=== PATIENT | male | born 1990 | race Caucasian/White ===

== ENCOUNTER 2019-12-31 18:17 | Emergency (ER) | payer SELFPAY ==
[~2019-12-31] VITALS: Ht 190.5 cm; Wt 83.9 kg
[2019-12-31] MEDS ORDERED: Norco 5-325 Ta1 EACH PO (19:53)
[2019-12-31] MEDS ORDERED: CEPH500 PO (19:53)
== END 2019-12-31 20:11 | disposition home or self-care (01) ==
LOC: ER 18:17
DX: S56.221A Laceration of other flexor muscle, fascia and tendon at forearm level, right arm, initial encounter (principal); W22.8XXA Striking against or struck by other objects, initial encounter
CPT/HCPCS: 12035; 73090; 99283-25; A9270-GY

== ENCOUNTER 2020-01-02 23:37 | Emergency (ER) | payer SELFPAY ==
[~2020-01-02] VITALS: Ht 190.5 cm; Wt 83.9 kg
[~2020-01-02 23:37] MED LIST: CEPH500 PO; Norco 5-325 Ta1 EACH PO
[2020-01-03] MEDS ORDERED: Bactrim Ds Tab1 EACH PO (00:09)
[2020-01-03] MEDS ORDERED: CEPH500 PO (00:09)
== END 2020-01-03 00:14 | disposition home or self-care (01) ==
LOC: ER 23:37
DX: S56.221D Laceration of other flexor muscle, fascia and tendon at forearm level, right arm, subsequent encounter (principal); L08.9 Local infection of the skin and subcutaneous tissue, unspecified; F17.210 Nicotine dependence, cigarettes, uncomplicated
CPT/HCPCS: 99282; A9270-GY

== ENCOUNTER 2020-01-07 15:26 | Emergency (ER) | payer OTHER ==
[~2020-01-07] VITALS: Ht 190.5 cm; Wt 83.9 kg
[~2020-01-07 15:26] MED LIST changes: +Bactrim Ds Tab1 EACH PO
[2020-01-07] MEDS ORDERED: Bactrim Ds Tab1 EACH PO (15:43)
[2020-01-07] MEDS ORDERED: Keflex500 MG PO (15:43)
== END 2020-01-07 16:25 | disposition home or self-care (01) ==
LOC: ER 15:26
DX: L03.113 Cellulitis of right upper limb (principal); K04.7 Periapical abscess without sinus; F17.210 Nicotine dependence, cigarettes, uncomplicated
CPT/HCPCS: 41800; 99283-25; A9270-GY

== ENCOUNTER 2020-01-27 14:17 | Inpatient (IN) | payer OTHER ==
[~2020-01-27] VITALS: Ht 190.5 cm; Wt 83.9 kg
[~2020-01-27 14:17] MED LIST changes: +Keflex500 MG PO
[2020-01-27 14:55] LABS: BASOPHILS ABSOLUTE AUTO 0.03 K/mm3 (0.00-0.23); BASOPHILS PERCENT AUTO 0 % (0-2); EOSINOPHILS ABSOLUTE AUTO 0.01 K/mm3 (0.00-0.68); EOSINOPHILS PERCENT AUTO 0 % (0-6); Hematocrit 42.9 % (37.0-53.0); Hemoglobin 14.5 g/dL (13.5-17.5); IMMATURE GRAN ABSOLUTE AUTO 0.05 K/mm3 (0.00-0.10); IMMATURE GRAN PERCENT AUTO 0 % (0-1); LYMPHOCYTES ABSOLUTE AUTO 2.79 K/mm3 (0.84-5.20); LYMPHOCYTES PERCENT AUTO 22 % (21-46); MONOCYTES ABSOLUTE AUTO 1.05 K/mm3 (0.16-1.47); MONOCYTES PERCENT AUTO 8 % (4-13); Mean Corpuscular HGB 31.7 pg (26.0-34.0); Mean Corpuscular HGB Conc 33.8 g/dL (31.5-36.5); Mean Corpuscular Volume 94 fL (80-100); NEUTROPHILS ABSOLUTE AUTO 8.85 K/mm3 (1.96-9.15); NEUTROPHILS PERCENT AUTO 69 % (41-73); Platelet Count 331 K/mm3 (150-400); RDW Coefficient Variation 13.1 % (11.7-14.2); RDW Standard Deviation 44.8 fL (35.1-46.3); Red Blood Cell Count 4.57 M/mm3 (4.30-5.90); White Blood Cell Count 12.78 K/mm3 (4.00-11.30)
[2020-01-27 15:06] LABS: Acetaminophen, Random <2.0 ug/mL (10.0-30.0); Alanine Aminotransfer (ALT/SGP 83 U/L (12-78); Albumin, Blood 3.4 g/dL (3.4-5.0); Albumin/Globulin Ratio 1.1 (0.8-1.8); Alk Phos 96 U/L (50-136); Anion Gap 12 mmol/L (6-16); Aspartate Aminotrans (AST/SGOT 97 U/L (12-37); Bilirubin, Total 0.3 mg/dL (0.1-1.0); Blood Urea Nitrogen 14 mg/dL (8-24); Bun/Creatinine Ratio 12.7 (12.0-20.0); CO2, Blood 21 mmol/L (21-32); Calcium, Blood 8.8 mg/dL (8.5-10.1); Chloride, Blood 108 mmol/L (98-108); Ethanol (Alcohol), Blood, Med <3 mg/dL; Globulin, Blood 3.1 g/dL (2.2-4.0); Glomerular Filtration Rate >60 (60-); Glucose, Blood 84 mg/dL (70-99); Potassium, Blood 3.7 mmol/L (3.5-5.5); Salicylate 4.2 mg/dL (2.8-20.0); Sodium, Blood 141 mmol/L (136-145); Total Protein, Blood 6.5 g/dL (6.4-8.2)
[2020-01-27 15:34] LABS: International Normalized Ratio 0.99; Prothrombin Time Results 10.6 Sec (9.7-11.5)
--- NOTE | 2020-01-27 17:20 | NUR ---
01/27/20 1720 Andrés Fontaine NO SEDATION OR ANESTHESIA GIVEN FOR PATIENT, DONE UNDER LOCAL PER ANTIBIOTICS GIVEN IN ER
--- NOTE | 2020-01-27 20:00 | NUR ---
RECEIVED HAND OFF FROM DUNG STOKES IN PACU USING SBAR. TRANSPORTED TO ROOM 211 VIA STRETCHER. TRANSFERED SELF TO BED WITH STANDBY ASSISTANCE, TOLERATED WELL. SITTING ON THE SIDE OF THE BED WITH EYES OPEN, NAD NOTED, VSS. ORIENTED TO ROOM, CALL SYSTEM, AND POC, VOICES UNDERSTANDING. PT STATED THAT HE NEEDED TO USE THE BATHROOM AND TOOK HIS IVF BAG WITH HIM, FOLLOWED BY RUNNING WATER BEING HEARD BY NURSING. WHEN ASKED IF HE WAS OK, PT STATED THAT HE WAS JUST WASHING OFF. NEW GOWN PROVIDED, AND PT SAT ON EDGE OF BED. HE ASKED FOR FOOD AND DRINK. CONTACED AND NEW ORDERS RECIEVED FOR DIET AND MEDICATIONS. DENIES FURTHER NEEDS OR WANTS AT THIS TIME. SAFETY MEASURES IN PLACE. ADMISSION ASSESSMENT IN PROGRESS. WILL CONTINUE TO MONITOR.
--- NOTE | 2020-01-27 20:15 | NUR ---
NURSING WENT TO ROOM TO GIVE PT FULL LIQUID DIET AND WATER TO DRINK, PT NOT IN ROOM. CALL RECEIVED FROM SECURITY, PT FOUND OUTSIDE IN EMPLOYEE BREAK AREA. THEY ASKED IF PT WAS ON A HOLD, NURSING INFORMED THEM THAT HE WAS NOT. PT TO BE ESCORTED BACK TO ROOM. WILL CONTINNUE TO MONITOR.
--- NOTE | 2020-01-27 20:30 | NUR ---
PT RETURNED TO ROOM WITH SECURITY AFTER BEING FOUND OUTSIDE IN THE EMPLOYEE BREAK AREA. STATED THAT HE DIDN'T REALIZE THAT HE WAS NOT ALLOWED TO LEAVE. THE ASKED IF HE WOULD LIKE A NICOTINE PATCH HE STATED THAT HE WOULD. ATE ALL JELLO AND APPLESAUCE OFFERED. WAS DRINKING WATER WITHOUT STRAW. MEDICATED FOR MOUTH AND FACE PAIN AT 7/10. DENIES FURTHER NEEDS OR WANTS AT THIS TIME. SAFETY MEASURES IN PLACE. WILL CONTINUE TO MONITOR.
--- NOTE | 2020-01-28 00:30 | NUR ---
TAKEN TO ER BY CHILDREN'S SERVICE SUPERVISOR AND CHARGE NURSE WITH [facility] SECURITY TEAM AND [employer] WHILE IN RESTRAINTS ON RELLSWORTH AFTER CRASHING THROUGH ANTIROOM WINDOW AND CRASHING INTO LARGE WINDOW IN ROOM ATTEMPTING TO BREAK IT.
--- NOTE | 2020-01-28 00:58 | NUR ---
01/27/20 901 PARTS COORDINATOR NOTIFIED THIS RN OF HEARING A "CRASHING" SOUND COMING FROM PT'S ROOM. PT FOUND TO BE PACING AROUND ROOM, BROKEN GLASS AND BLOOD SCATTERED AROUND ROOM. PT ASKED WHAT HAPPENED, PT STATED "I FELL THROUGH THE WINDOW" PT ASKED AGAIN WHAT HAPPENED, PT STATED "I FELL THROUGH THE WINDOW WITH MY HEAD" WINDOW TO ANTI ROOM NOTED TO BE BROKEN AND SHATTERED. SECURITY AND NURSING WILTON WEAVER CALLED. PT CONT TO PACE AROUND ROOM, PT ASSISTED TO SIT ON SIDE OF BED. DR LOCK NOTIFIED AT 2293, NURSING WILTON WEAVER SPOKE W/DR LOCK, PT TO BE D/C AMA. [place] [employer] CALLED. IV'S X2 D/C WNL. PT WOUNDS CLEANSED W/NS, NEW DRESSINGS APPLIED NO GLASS FRAGMENTS NOTED IN WOUNDS. PT APPEARED TO BECOME INCREASINGLY MORE AGITATED; SECURITY REMAINS IN ROOM. [employer] CALLED. PT BEGAN TO PACE IN ROOM, BREATHING BECAME MORE RAPID. PT ENC TO REMAIN CALM. PT STOOD UP AND LUNGED SELF INTO LARGE ROOM WINDOW, PT HIT WINDOW HEAD FIRST, FELL BACK ONTO FLOOR. SECURITY ATTEMPTED TO REDIRECT PT AND ASSIST PT UP. PT UNCOOPERATIVE, LUNGED SELF AT WINDOW AGAIN. PT AGAIN HIT WINDOW HEAD FIRST HEAD AND FELL ONTO FLOOR. SECURITY RESTRAINING PT. [employer] OFFICERS IN ROOM. PT UNCOOPERATIVE, SPITTING AT SECURITY AND POLICE. SPIT MASK PLACED, PT HANDCUFFED BY POLICE. PT ASSISTED ONTO [facility], TWICE TOUGH RESTRAINTS PLACED X4. NURSING WILTON WEAVER NOTIFIED ER; PT TAKEN TO ER W/THIS RN, NURSING WILTON WEAVER, SECURITY AND [employer] OFFICERS. REPORT GIVEN TO MATT ROLLINS RN. DR FONSECA IN TO SEE PT.
[2020-01-28 01:50] LABS: Source, Urine Catheter
[2020-01-28 01:52] LABS: Appearance, Urine Clear (Clear); Bilirubin, Urine Neg (Neg); Blood, Urine 1+ (Neg); Color, Urine Amber (P-Yellow); Glucose Qualitative, Urine Neg (Neg); Ketones, Urine 3+ (Neg); Leukocyte Esterase, Urine 1+ (Neg); Nitrite, Urine Neg (Neg); Protein, Urine 2+ (Neg); Urobilinogen, Urine 1+ (Normal)
[2020-01-28 01:55] LABS: PCO2 Arterial 48.1 mmHg (35-45); PO2 Arterial 86.5 mmHg (80-100); pH Blood Arterial 7.33 (7.35-7.45)
[2020-01-28 02:04] LABS: U Amphetamine Screen DETECTED; U Benzodiazapine Screen DETECTED; U Cannabinoids Screen DETECTED; U Methamphetamine Screen DETECTED; U Oxycodone Screen DETECTED
[2020-01-28 02:05] LABS: Red Blood Cells, Urine 0-2 /hpf (0-2); Squamous Epithelial Cells Not Seen /hpf (Few); U Barbituate Screen Not Detected; U Buprenorphine Screen Not Detected; U Cocaine Screen Not Detected; U Methadone Screen Not Detected; U Opiates Screen Not Detected; U Phencyclidine Screen Not Detected; U Propoxyphene Screen Not Detected
[2020-01-28 02:06] LABS: Bacteria Many /hpf; Hyaline Casts 0-2 /lpf (0-2); Mucus Mod (0-Heavy)
[2020-01-28 03:49] LABS: Alanine Aminotransfer (ALT/SGP 69 U/L (12-78); Albumin, Blood 2.9 g/dL (3.4-5.0); Albumin/Globulin Ratio 1.1 (0.8-1.8); Alk Phos 81 U/L (50-136); Anion Gap 7 mmol/L (6-16); Aspartate Aminotrans (AST/SGOT 92 U/L (12-37); Bilirubin, Total 0.6 mg/dL (0.1-1.0); Blood Urea Nitrogen 19 mg/dL (8-24); CO2, Blood 26 mmol/L (21-32); Calcium, Blood 8.2 mg/dL (8.5-10.1); Chloride, Blood 107 mmol/L (98-108); Ethanol (Alcohol), Blood, Med <3 mg/dL; Globulin, Blood 2.6 g/dL (2.2-4.0); Glomerular Filtration Rate >60 (60-); Glucose, Blood 86 mg/dL (70-99); Potassium, Blood 3.3 mmol/L (3.5-5.5); Salicylate 2.5 mg/dL (2.8-20.0); Sodium, Blood 140 mmol/L (136-145); Total Protein, Blood 5.5 g/dL (6.4-8.2)
[2020-01-28 03:57] LABS: BASOPHILS ABSOLUTE AUTO 0.03 K/mm3 (0.00-0.23); BASOPHILS PERCENT AUTO 0 % (0-2); EOSINOPHILS ABSOLUTE AUTO 0.02 K/mm3 (0.00-0.68); EOSINOPHILS PERCENT AUTO 0 % (0-6); Hematocrit 35.3 % (37.0-53.0); Hemoglobin 11.6 g/dL (13.5-17.5); IMMATURE GRAN ABSOLUTE AUTO 0.03 K/mm3 (0.00-0.10); IMMATURE GRAN PERCENT AUTO 0 % (0-1); LYMPHOCYTES ABSOLUTE AUTO 2.68 K/mm3 (0.84-5.20); LYMPHOCYTES PERCENT AUTO 23 % (21-46); MONOCYTES ABSOLUTE AUTO 1.12 K/mm3 (0.16-1.47); MONOCYTES PERCENT AUTO 9 % (4-13); Mean Corpuscular HGB 31.5 pg (26.0-34.0); Mean Corpuscular HGB Conc 32.9 g/dL (31.5-36.5); Mean Corpuscular Volume 96 fL (80-100); Mean Platelet Volume 9.9 fL (9.1-12.4); NEUTROPHILS PERCENT AUTO 67 % (41-73); Platelet Count 237 K/mm3 (150-400); RDW Coefficient Variation 13.2 % (11.7-14.2); Red Blood Cell Count 3.68 M/mm3 (4.30-5.90); White Blood Cell Count 11.88 K/mm3 (4.00-11.30)
[2020-01-28 03:59] LABS: CPK Creatine Kinase 2291 U/L (39-308)
[2020-01-28 04:15] LABS: Creatine Kinase MB 26.7 ng/mL (0.0-3.6); Creatine Kinase MB Index 1.2 (0.0-4.0)
--- NOTE | 2020-01-28 06:37 | NUR ---
PT TO ICU FROM ER AT 0415. PT INTUBATED, & SOFT WRIST RESTRAINTS IN PLACE, PROPOFOL INFUSING. PT HAS MULTIPLE AREAS OF BRUISING ON ALL EXTREM. ALSO, MULTIPLE AREAS TO HANDS & ARMS W SUTURES, AND PARI TO TOP OF HEAD. FINE SUTURES TO LOWER LIP, MANDIBLE. MODERATE AMT OF BLOOD OOZING, SKIN WASHED & BACITRACIN OINT APPLIED. NIMBEX GTT AT 1MCG/KG/HR, PROPOFOL INFUSING AT 55MCG/KG/MIN, BIS MONITOR READING 50'5-60'S. VALLADARES DRNG CL YELLOW URINE.
--- NOTE | 2020-01-28 09:00 | NUR ---
[place] of Care: Care assumed at 0700hr. Patient intubated, sedated and on Nimbex gtt. Vent to AC- 14/500/25/5, spO2-100%, VSS, tolerating vent without difficulty. Nimbex gtt at 1mcg/kg/min, and propofol gtt at 55mcg/kg/min, BIS monitor reading in the 50's-60, T/F-4/4, and patient slightly moves head [id number] with oral care. OG tube placed to [id number] at shift change, approx 500ml of green/yellow bile output with small chunks of food thus far. Peripheral IV's x2 to lt arm patent and intact, infusing without difficulty. Bilateral soft wrist restraints in place to protect lines, tubes, cords. Patient has several lacerations (sutured) to face and rt arm, also stapled laceration to top of head. Plan to cleanse all wounds at apply steri-strips to x2 lacerations that have become slightly displaced. All wounds photographed and pictures placed in chart. Spoke with Dr. Lovelace at this time. Discussed patient's plan of care. received orders to D/C Nimbex gtt, and start fentanyl GRAVES REGISTRATION SPECIALIST with prn Ativan for sedation. Dr. Lovelace informed she will also order Abx, and K+ replacement. Will continue to monitor.
--- NOTE | 2020-01-28 11:52 | NUR ---
Update- Medications- Wound Care: Nimbex gtt D/C'd and Fentanyl gtt started at 100mcg/hr, at approx 1030hr per Dr. Lovelace. All wounds/lacerations cleansed with "wound cleanser" and bacitracin ointment applied. Steri-strips applied to mandible lacerations and to laceration on rt hand. Wound care per Dr. Bahena. Will continue to monitor.
[2020-01-28 17:18] LABS: Anion Gap 8 mmol/L (6-16); Blood Urea Nitrogen 13 mg/dL (8-24); CO2, Blood 24 mmol/L (21-32); CPK Creatine Kinase 1254 U/L (39-308); Chloride, Blood 109 mmol/L (98-108); Creatinine, Blood 0.87 mg/dL (0.60-1.20); Glomerular Filtration Rate >60 (60-); Glucose, Blood 60 mg/dL (70-99); Potassium, Blood 3.5 mmol/L (3.5-5.5); Sodium, Blood 141 mmol/L (136-145)
--- NOTE | 2020-01-28 18:32 | NUR ---
Shift Summary: Patient remains intubated and sedated throughout shift, tolerating vent without difficulty. Nimbex gtt D/C'd this morning and fentanyl gtt started. Patient now rouses to verbal stimuli and followed commands to open eyes, squeeze hands. Patient also becomes restless and difficulty to re-direct at times. Received instructions per Dr. Lovelace to keep patient sedated, and calm. Prn Ativan given x3. Fentanyl gtt titrated up to 200mcg/hr, but then back down to 100mcg/hr and systolic BP decreased to 80's. Propofol gtt decreased to 45mcg/kg/min. BP now improved to systolic- low 100's, MAP's 70's-80's. Prn Ativan effective to calm patient. No changes to wounds/lacerations since this morning, remains C/D/I and approximated. Borjas cath remains patent and intact, draining clear yellow urine. 1600hr BMP showed glucose-60, call placed to Dr. Lovelace. Received orders to start TF, Jevity 1.2 at 25ml/hr, 1amp D50% IV, and to check glucose q4hr. Soft wrist restraints remain in place. Appears calm and cooperative at this time. Will continue to monitor until report to NOC shift RN.
--- NOTE | 2020-01-28 19:33 | NUR ---
ASSUMED PT CARE FROM DUNG MAYO AT 1900 PT SEDATED AND INTUBATED. PROPOFOL AT 45MCG/KG/MIN, FENTANYL AT 100MCG/HR; 4MLS/HR. VENT SETTINGS: AC 16, TV 500, PEEP 5, FIO2 25%. PER REPORT PT IS TO BE SEDATED T/O NIGHT; NO SEDATION VACATION OR VENTILATOR WEAN IN THE AM PER DR. GRIJALVA. PT WILL BE ASSESSED IN THE AM REGARDING EXTUBATION. NS INFUSING AT 125MLS/HR. VSS; SEE FLOWSHEET. PT HAS MULTIPLE LACERATIONS WITH SUTURES TO RIGHT ARM, MULTIPLE OPEN ABRASIONS TO BILATERAL HANDS, LACERATION TO SCALP WITH THREE PARI INTACT, SCATTERED BRUISING AND SCARS TO BLE'S; SEE PHOTOS IN CHART. BEDSIDE REPORT GIVEN.
--- NOTE | 2020-01-29 00:11 | NUR ---
REASSESSMENT NOTICED RHYTHM CHANGE EARLIER IN SHIFT FROM NSR TO JUNCTIONAL RHYTHM WITH INVERTED P WAVES AND ELEVATED ST SEGMENT. FOUND EKG FROM ED VISIT ON 01/28/[address] SEGMENT ELEVATION AND NO ECTOPIC ATRIAL RHYTHM. EKG OBTAINED SHOWING ECTOPIC ATRIAL RHYTHM; HR 75; BP STABLE. AFTER OBTAINING EKG AND REPOSITIONING PT; RHYTHM NOTED TO CHANGE AGAIN INTO A WANDERING ATRIAL PACEMAKER. PT CONTINUED TO CHANGE BACK AND FORTH TO UPRIGHT P WAVES, TO INVERTED P WAVES, AND THEN INTO BAKARI RHYTHMS. WILL CONTINUE TO MONITOR. SEE CHART FOR PRINT OUT RHYTHM STRIPS. DURING REPOSITIONING PT ALSO OPENED EYES, WAS ABLE TO NOD HEAD YES/NO TO QUESTIONS, AND FOLLOW SIMPLE COMMANDS. PROPOFOL AT 40 MCG/KG/MIN AND FENTANYL AT 100MCG/HR; 4MLS/HR.
[2020-01-29 03:27] LABS: BASOPHILS ABSOLUTE AUTO 0.02 K/mm3 (0.00-0.23); BASOPHILS PERCENT AUTO 0 % (0-2); EOSINOPHILS ABSOLUTE AUTO 0.06 K/mm3 (0.00-0.68); EOSINOPHILS PERCENT AUTO 1 % (0-6); Hematocrit 31.2 % (37.0-53.0); Hemoglobin 10.4 g/dL (13.5-17.5); IMMATURE GRAN ABSOLUTE AUTO 0.01 K/mm3 (0.00-0.10); IMMATURE GRAN PERCENT AUTO 0 % (0-1); LYMPHOCYTES ABSOLUTE AUTO 2.78 K/mm3 (0.84-5.20); LYMPHOCYTES PERCENT AUTO 39 % (21-46); MONOCYTES ABSOLUTE AUTO 0.65 K/mm3 (0.16-1.47); MONOCYTES PERCENT AUTO 9 % (4-13); Mean Corpuscular HGB 32.1 pg (26.0-34.0); Mean Corpuscular HGB Conc 33.3 g/dL (31.5-36.5); Mean Corpuscular Volume 96 fL (80-100); NEUTROPHILS ABSOLUTE AUTO 3.62 K/mm3 (1.96-9.15); NEUTROPHILS PERCENT AUTO 51 % (41-73); Platelet Count 201 K/mm3 (150-400); RDW Coefficient Variation 13.4 % (11.7-14.2); RDW Standard Deviation 47.8 fL (35.1-46.3); Red Blood Cell Count 3.24 M/mm3 (4.30-5.90); White Blood Cell Count 7.14 K/mm3 (4.00-11.30)
[2020-01-29 03:49] LABS: Alanine Aminotransfer (ALT/SGP 55 U/L (12-78); Albumin, Blood 2.3 g/dL (3.4-5.0); Albumin/Globulin Ratio 1.2 (0.8-1.8); Alk Phos 64 U/L (50-136); Anion Gap 5 mmol/L (6-16); Aspartate Aminotrans (AST/SGOT 66 U/L (12-37); Bilirubin, Total 0.3 mg/dL (0.1-1.0); Blood Urea Nitrogen 12 mg/dL (8-24); Bun/Creatinine Ratio 13.3 (12.0-20.0); CO2, Blood 26 mmol/L (21-32); Calcium, Blood 7.7 mg/dL (8.5-10.1); Chloride, Blood 112 mmol/L (98-108); Creatinine, Blood 0.91 mg/dL (0.60-1.20); Glomerular Filtration Rate >60 (60-); Glucose, Blood 77 mg/dL (70-99); Potassium, Blood 3.3 mmol/L (3.5-5.5); Sodium, Blood 143 mmol/L (136-145); Total Protein, Blood 4.3 g/dL (6.4-8.2)
--- NOTE | 2020-01-29 07:28 | NUR ---
[place] of Care; Care assumed at 0700hr. Patient remains intubated and sedated. Vent to AC-16/500/5/25%, spO2-98-100%, VSS, tolerating vent without difficulty. Propofol gtt at 40mcg/kg/min, fentanyl gtt at 100mcg/hr. Patient opens eyes to verbal stimuli and follows simple commands to move extremities and squeeze hands. Became slightly restless after woken but able to verbally re-direct and calm patient. Peripheral IV's x2 remain patent and intact, infusing without difficulty. Borjas cath patent and intact, draining clear yellow urine. KCL IV ordered by this RN this morning per ICU electrolyte protocol. TF (Jevity 1.2) at goal of 25ml/hr, with 30ml H2O flush q4hr. Bilateral soft wrist restraints in place to protect lines, tubes, cords. Will discuss possible extubation with Dr. Lovelace this morning. Will continue to monitor.
--- NOTE | 2020-01-29 07:53 | NUR ---
END OF SHIFT SUMMARY PT REMAINS INTUBATED/SEDATED. PROPOFOL AT 40MCG/KG/MIN. FENTANYL AT 100MCG/HR; 4MLS/HR. PT ABLE TO OPEN EYES TO VERBAL STIMULI, NOD HEAD YES/NO TO QUESTIONS, FOLLOWS SIMPLE COMMANDS. NODS HEAD "NO" TO PAIN. ATIVAN 2MG ADMINISTERED APPROXIMATELY EVERY 4 HOURS WITH REPOSITIONING D/T NOT TOLERATING VENT OR MOVEMENT. VENT SETTINGS REMAIN UNCHANGED. LUNG SOUNDS CLEAR T/O ALL LOBES; NO SECRETIONS SUCTIONED. SEE CHART AND EARLIER NOTE REGARDING RHYTHM CHANGES. CURRENTLY PT IS NSR WITH HR 70'S. BP'S STABLE; SEE FLOWSHEET. JEVITY 1.2 AT GOAL OF 25CC/HR; MINIMAL RESIDUALS THIS SHIFT WITH HIGHEST BEING 110CC, REINSTILLED. TEMP VALLADARES CATHETER IS PATENT AND DRAINING DARK, GREEN/YELLOW URINE TO GRAVITY; 350CC OUTPUT THIS SHIFT. NS REMAINS INFUSING AT 125MLS/HR. BILATERAL SOFT WRIST RESTRAINTS REMAIN IN PLACE. BEDSIDE REPORT GIVEN TO DUNG MAYO.
--- NOTE | 2020-01-29 12:30 | NUR ---
Extubation: Fentanyl gtt stopped at approx 1030hr, and propofol gtt decreased to 20mcg/mg/min. Then received instructions per Dr. Lovelace to place patient on precedex gtt to facilitate extubation. Precedex gtt started at 1125hr, then propofol gtt stopped at 1145hr. Patient able to stay awake and follow simple commands. Patient then extubated at 1210hr by RT Sheth and this RN. Extubated without difficulty, strong effective cough with extubation. Patient placed on 2L/NC, spO2-95-96%, no s/s of dyspnea or SOB. Patient mostly sleeping, but remains calm and cooperative with staff. Will continue to monitor.
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
--- NOTE | 2020-01-29 21:00 | NUR ---
ASSUMPTION OF CARE ASSUMED CARE OF PT @ 1900, PT RESTING IN BED, AROUSES TO VERBAL STIMULI, ORIENTED TO SELF, DATE, EVENT AND FOLLOWING DIRECTIONS. PT CALM AND COOPERATIVE, VERY WEAK VOICE. PT DENIES PN OR SOB. O2 SATURATIONS> 90% ON 2L PER NC, MONITOR SHOWS SINUS RHYTHM, HR 80-90'S, BP STABLE. SWELLING TO RT HAND AND FACE PRESENT, LACERATIONS AND SUTURES TO THESE AREAS. PT TOLERATES WOUND CARE TO LACERATIONS, LUMP PRESENT TO UPPER RIGHT ARM, PROXIMAL TO LACERATION. CBG 76, WILL CONTINUE TO MONITOR. CALL LIGHT WITHIN REACH, PT DENIES ANY NEEDS.
--- NOTE | 2020-01-30 07:20 | NUR ---
SHIFT SUMMARY NO ACUTE CHANGES THIS SHIFT, PT SLEPT THROUGH NIGHT, AROUSES TO VERBAL STIMULI REMAINS ORIENTED AND FOLLOWING DIRECTIONS. O2 SATURATIONS>90% ON 2L PER NC, MONITOR SHOWS SINUS RHYTHM VSS. WOUND CARE PROVIDED AT BEGINNING OF SHIFT, PT TOLERATED WELL. PT TOLERATED SMALL SIPS OF WATER WITH PO MEDICATION, REQUESTED FOOD THIS AM, INFORMED PT ADVANCING DIET WOULD BE DISCUSSED WITH PROVIDER, PT VERBALIZES UNDERSTANDING. VALLADARES REMAINS IN PLACE, DRAINING CLEAR YELLOW URINE. PT WEAK T/O, ABLE TO REPOSITION SELF IN BED FOR COMFORT. REPORT GIVEN TO ERIKA RAZO.
--- NOTE | 2020-01-30 10:02 | NUR ---
CARE ASSUMED REPORT RECEIVED, CARE ASSUMED AT 0700 FROM DUNG MALDONADO. PT ASLEEP ON ROUNDS. VITALS STABLE. DURING ASSESSMENT, PT AGITATED, SWEARING AT STAFF, RESTLESS IN BED. PT REPORTS HAVING PAIN "EVERYWHERE." MEDICATED PER EMAR. DR. JOLLY TO BEDSIDE FOR ASSESSMENT. PLAN TO D/C VALLADARES, GET PT UP AND MOVING, ADVANCE DIET AND POSSIBLE DISCHARGE TODAY. MANAGER CLINICAL RESEARCH CONSULT PLACED PT IS HOMELESS. SPOKE WITH KELLI IN D/C PLANNING WHO SAYS SHE WILL SEE HIM TODAY TO GIVE HIM SOME RESOURCES. AFTER MEDICATIONS AND EDUCATING PATIENT ON PLAN OF CARE, PT CALM AND COOPERATIVE. TRAY ORDERED FROM FOOD SERVICES FOR PATIENT. DECLINES FURTHER NEEDS AT THIS TIME, AGREEABLE TO USE CALL LIGHT NEEDS ARISE.
--- NOTE | 2020-01-30 10:29 | NUR ---
KADENTE SINCE PREVIOUS NOTE, PT ESCALATING FURTHER. REPORTS, "I AM TIRED OF BEING TOLD TO CUT MY HEAD OFF." ASKED PATIENT IF HE IS HEARING VOICES AND PT SAYS, "YES." AND BEGINS SWEARING AT STAFF, UNABLE TO REASON WITH PATIENT. SAYS, "HOW MANY TIMES DO I HAVE TO TRY TO CUT MY HEAD OFF WITH A WINDOW? I HAVE TRIED FIVE TIMES ALREADY." UPDATED DR. JOLLY. Richard JOLLY TO BEDSIDE FOR ASSESSMENT. NEW ORDER FOR PSYCH CONSULT. SPOKE WITH DR. HOUGH. NEW ORDER FOR HIGH RISK SUICIDE PRECAUTIONS. CONTINUOUS 1:1 OBSERVATION. PER NEREIDA, NURSING DISTRICT COURT JUSTICE, 1:[address] TO BE WITH PATIENT.
[2020-01-30 11:17] LABS: Hematocrit 31.8 % (37.0-53.0); Hemoglobin 10.8 g/dL (13.5-17.5); Mean Corpuscular HGB 31.7 pg (26.0-34.0); Mean Platelet Volume 9.9 fL (9.1-12.4); Platelet Count 209 K/mm3 (150-400); RDW Coefficient Variation 12.1 % (11.7-14.2); RDW Standard Deviation 41.8 fL (35.1-46.3); Red Blood Cell Count 3.41 M/mm3 (4.30-5.90)
[2020-01-30 11:22] LABS: Mean Corpuscular Volume 93 fL (80-100)
--- NOTE | 2020-01-30 13:26 | NUR ---
UPDATE SINCE PREVIOUS NOTE, PT HAS HAD 1:1 DIRECT OBSERVATION AT ALL TIMES. PT EMOTIONALLY LABILE. GOES FROM BEING AGITATED AND NOT REASONABLE, TO CALM, COOPERATIVE AND MAKING JOKES. FOR THE MOST PART PATIENT HAS BEEN CALM AND COOPERATIVE. PT SLEPT FOR ANOTHER HOUR OR SO, AND SINCE THEN HAS BEEN UP, EATEN LUNCH AND PARTICIPATED IN ADL'S. STEADY ON FEET. PT ABLE TO DO ALL ADL'S WITH SET UP ASSIST AND VERBAL CUES ONLY. VALLADARES REMOVED, PT HAS SUCCESSFULLY URINATED SINCE THEN. PT STILL AWAITING PSYCHIATRIC CONSULT. SPENT TIME HAVING CONVERSATION WITH PATIENT REGARDING HIS MENTAL HEALTH, DRUGS, AND BOTH MENTAL AND PHYSICAL CONSEQUENCES OF DOING THESE DRUGS AND PT SAYS, "I RESPECT WHAT YOU ARE SAYING, BUT THEY MAKE ME FEEL BETTER." AND LAUGHS.
--- NOTE | 2020-01-30 15:15 | NUR ---
UPDATE SINCE PREVIOUS NOTE, DR. HOUGH HAS SEEN PATIENT AND RECOMMENDS HOSPITAL HOLD AND PLACEMENT FOR PSYCHIATRIC HOSPITALIZATION. PT UPDATED AND AGREEABLE. READ CIVIL RIGHTS. PT GIVEN COPY AND SECOND COPY PLACED ON CHART. PT MEDICATED WITH SEROQUEL PER DR. HOUGH ORDERS AND HAS BEEN SLEEPY SOUNDLY SINCE THEN. 1:1 SITTER CONTINUES AT BEDSIDE.
--- NOTE | 2020-01-30 15:19 | NUR ---
PROVIDER COMMUNICATION UPDATED DR. JOHNS REQUESTED BY PHYSICIAN ON PATIENT'S RESPONSE TO SEROQUEL. NEW ORDER FOR SEROQUEL EVERY DAY AT BEDTIME. ORDER PLACED.
--- NOTE | 2020-01-30 17:09 | NUR ---
UPDATE SINCE PREVIOUS NOTE, PT HAS BEEN SLEEPING, BUT REPOSITIONING SELF FREQUENTLY IN BED. VITALS STABLE. NOTIFIED THAT PT TO TRANSFER TO ROOM 353. PT UPDATED AND AGREEABLE. REPORT GIVEN TO DUNG VIDAL ON MEDICAL FLOOR TO ASSUME CARE.
--- NOTE | 2020-01-30 17:46 | NUR ---
PT STATES STIL HEAR VOICES TO KILL SELF
--- NOTE | 2020-01-30 17:48 | NUR ---
PT ADMITTED TO ROOM. SI STMT SAYS STILL HEARS VOICES TELLING SELF TO KILL SELF, STATES NOT PLANNING TO PROCEED AT THIS TIME.
--- NOTE | 2020-01-30 18:02 | NUR ---
PT TRANSFERRED TO ROOM. ATE DINNER. SITTER IN ROOM. IS ON VISUAL MONITOR ALSO. VERIFIED THRU DEVON IN MONITOR ROOM. PT RESTING IN BED. NO OTHER CONCERNS AT THIS TIME. BED IN LOW POSITION. SITTER IN ROOM, SITTER HAS VOCERA. CALL LITE IN WALL.
--- NOTE | 2020-01-30 18:56 | NUR ---
TRANSFER PT TO ROOM 353 VIA WHEELCHAIR. DUNG VIDAL AT BEDSIDE AT TIME OF TRANSFER.
--- NOTE | 2020-01-31 01:14 | NUR ---
01/30/201909 PT RESTING IN BED WITH SITTER AT SIDE; PT IS ON CAMERA.
--- NOTE | 2020-01-31 03:58 | NUR ---
SHIFT SUMMARY: 30 Y/O MALE RESTED COMFORTABLY ALL SHIFT; PT DENIES SUICIDAL THOUGHTS OR VOICES DURING THIS SHIFT; PT WAS POLITE AND ABLE TO FOLLOW ALL SIMPLE VERBAL REQUESTS; C/O GENERALIZED PAIN RATED 8/10 WITH ROXICODONE 10MG PO GIVEN TWICE WITH RELIEF FELT; HAPPY AND COOPERATIVE; PT TOOK SHOWER WITH THIS NURSE PRESENT; PTS WOUNDS ARE ALL WELL APPROXIMATED WITH EDEMA TO BILATERAL HANDS NOTED (ABLE TO DORSIFLEX ALL DIGITS); PT STATED, "ZULLY BEEN DOING METH FOR 15 YEARS"; PTS THOUGHT PROCESS SLIGHTLY DISORGANIZED AT TIMES; PT HAD SITTER IN ROOM AT ALL TIMES WITH BATHROOM DOOR KEPT LOCKED (ONLY OPENED BY THIS NURSE TO VOID AND SHOWER WITH THIS NURSE PRESENT AT ALL TIMES); BED LOW POSITION WITH CALL LIGHT AT SIDE.
--- NOTE | 2020-01-31 19:00 | NUR ---
SUMM- PT SLEPT MOST OF THE DAY. MEDICATED FOR PAIN STATED 3/10 FOR ARMS, AND SEROQUIL AT 0800. AT 1045 PT BECAME EXTREMELY AGGITATED STATING " I WANT TO GET THE F OUT OF HERE- I WANT TO SMOKE POT AND A CIGARETTE"- CALLED AND DR ESTRADA, ORDER FOR B-52 ADMINISTERED IV. PT AGREED TO INJECTION AND WAS IMMEDIATELY APPOLOGETIC AND STATES HE JUST GETS ANXIOUS. AGREED TO STAY AND TO BE COOPERATIVE. PT ATE BREAKFAST AT THIS TIME AND WENT BACK TO SLEEP. RESP EVEN UNLABOERD. 1:1 SITTER, 07/05. PT AWOKE AT 1445 EXTREMELY AGGRESSIVE AND PULLED CLOSED DOOR LOCK OFF, LOOKING FOR PERSONAL BELONGINGS AND AGAIN WANTED TO HAVE A CIGARETTE AND SMOKE POT. INFORMED PT AGAIN OF 2MD HOLD AND CALLED . THIS TIME RN ADMINISTERED 2MG IM ATIVAN, WITH PT'S CONSENT AND PT ALSO TOOK OXYCODONE AND SEROQUIL PO, AND AGREED TO BE COOPERATIVE WITH 2MD HOLD. PT AGAIN ATE AND DRAND AND TOILETED AND BACK TO SLEEP. PT SLEPT THROUGH DINNER, AWOKEN FOR DINNER, BUT STATES HE WILL WAIT TO EAT, HAS NO REQ AT 1830. REPORT TO KEVIN PARKS RN.
--- NOTE | 2020-01-31 20:44 | NUR ---
1914 PT RESTING COMFORTABLY IN BED WITH SITTER--CRISPIN AT SIDE.
--- NOTE | 2020-02-01 04:46 | NUR ---
SHIFT SUMMARY: 30 Y/O MALE RESTED COMFORTABLY ALL SHIFT; PT POLITE AND ABLE TO FOLLOW ALL SIMPLE VERBAL COMMANDS; PT VOICED HE STILL HEARING VOICES AT TIMES TO KILL SELF BUT DOES NOT HAVE ANY URGES DURING THIS SHIFT; PT C/O GENERALIZED PAIN RATED 8/10 WITH ROXICODONE 10MG PO X 2 GIVEN THIS SHIFT WITH RELIEF FELT; PT HAD NO AGITATION OR OUTBURSTS THIS SHIFT (SEROQUEL 50MG PO GIVEN X 1 PRN FOR ANXIETY WITH RELIEF FELT); SEE PREVIOUS NURSING NOTES REGARDING EDUCATION PROVIDED BY THIS NURSE TO PATIENT; PT HAD BEDSIDE SITTER ALL SHIFT; BED LOW POSITION WITH CALL LIGHT AT SIDE. PT ALSO CONTINUES TO BE ON CAMERA.
--- NOTE | 2020-02-01 11:38 | NUR ---
1130- SPOKE WITH DR VALDEZ ON THE PHONE AROUND 1030- STATES HE WILL BE IN ON MON TO EVAL THE PATIENT. DR AWARE OF THE 2 AGGITATION EPOSODES 01/30 REQUIRING SECURITY AND MULT STAFF TO RESPOND. PT DEESCALATED WITH VERBAL CUING AND ABLE TO MEDICATE AND SEDATE. PT SEEMED AMIABLE THIS AM AND COOPERTIVE. ATE BREAKFAST AND SLEPT UNTIL 1130. AWOKE, SEVERELY AGGITATED, CAME OUT INTO [facility] INSISTING HE LEAVE THE HOSPITAL. SECURITY CALLED AND RN MEDICATED WITH SEREQIL AND OXY. PT CALMED WITH VERBAL CUING AND BACAME COOPERATIVE UNDERSTANDING HE IS ON A HOLD AND WILL GO TO [facility] IF HE LEAVES THE HOSPICAL. AGREES TO COOPERATE CURRENTLY.
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
--- NOTE | 2020-02-02 04:08 | NUR ---
PT IS CALM AND COOPERATIVE AT THIS TIME. HAS JUST HAD A SHOWER AND IS RESTING IN BED. 1:1 SITTER AT BEDSIDE.
--- NOTE | 2020-02-02 06:39 | NUR ---
Rn summary: Patient is alert and oriented. Pt was pleasant and cooperative beginning of shift. Was medicated with Oxy 10 mg for facial pain and seroquel 50 mg for sleep. Pt has rested in bed all shift. He has gotten up to BR x2 this shift. About 0430 pt was up flushed toliet multiple times, was talking to self, seemed aggitated then went back to bed. He has tossed and turned in bed. Pt states " He needs to heal and not just take meds". Pt did swear and get testy with the sitter when she asked if he was cold. Pt has old sutures that pt states are 3wks or more old in his rt elbow area that needs removed. Continue 2 MD hold and high suicide watch with 1;1 sitter. Monitor for increased aggitation.
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
--- NOTE | 2020-02-02 17:29 | NUR ---
DISCHARGE PT BECAME AGITATED DUE TO WANTING TO LEAVE THE HOSPITAL BUT WAS UNABLE TO DUE TO BEING ON A 2 MD HOLD. THIS RN TRIED TALKING PT DOWN AND SECURITY WAS CALLED DUE TO PT THREATENING TO LEAVE AND WAS GETTING MORE AGITATED. THIS RN TALKED WITH PT AND HE AGREED TO CALM DOWN BUT DECLINED TO TAKE SEROQUEL. HE ALSO WANTED TO TALK WITH A PHYSICIAN AND THIS RN CALLED DR. ESTRADA. SHE AGREED TO SEE PT. DR. ESTRADA CAME TO SEE PT AND TALKED WITH HIM BUT PT CONTINUED TO BE AGITATED, YELLING AND CURSING AT SECURITY AND CONTINUE TO THREATEN TO LEAVE. SECURITY TOOK PT OUT OF ROOM. NURSING TEACHER LIP READING, INSURANCE CLAIMS CLERK, AND DR. ESTRADA AWARE.
== END 2020-02-02 17:06 | disposition left against medical advice (07) | DRG 580 ==
LOC: ER 14:17 → SURS 14:18 → ICUE 14:18 → ER 15:30 → SURS 19:29 → ICUE 01-28 03:58 → MEDS 01-28 10:54 → ICUW 01-30 14:44 → ICUE 01-30 14:45 → MEDS 01-30 17:42
PROVIDERS: Emergency Medicine; Internal Medicine; Internal Medicine Pulmonary Disease; Otolaryngology; Physician Assistant; ADMIT Surgery
PROC: 0HQBXZZ Repair Right Upper Arm Skin, External Approach (ICD-10-PCS; 2020-01-27)
PROC: 0CQ10ZZ Repair Lower Lip, Open Approach (ICD-10-PCS; 2020-01-27)
PROC: 0JQ10ZZ Repair Face Subcutaneous Tissue and Fascia, Open Approach (ICD-10-PCS; 2020-01-27)
PROC: 0KQ70ZZ Repair Right Upper Arm Muscle, Open Approach (ICD-10-PCS; 2020-01-27)
PROC: 0HQDXZZ Repair Right Lower Arm Skin, External Approach (ICD-10-PCS; principal; 2020-01-27 15:30)
PROC: 0BH17EZ Insertion of Endotracheal Airway into Trachea, Via Natural or Artificial Opening (ICD-10-PCS; 2020-01-28)
PROC: 5A1945Z Respiratory Ventilation, 24-96 Consecutive Hours (ICD-10-PCS; 2020-01-28)
DX: S01.81XA Laceration without foreign body of other part of head, initial encounter (principal); R45.851 Suicidal ideations; S46.321A Laceration of muscle, fascia and tendon of triceps, right arm, initial encounter; F15.10 Other stimulant abuse, uncomplicated; E87.6 Hypokalemia; F20.9 Schizophrenia, unspecified; R45.1 Restlessness and agitation; S01.01XA Laceration without foreign body of scalp, initial encounter; S01.511A Laceration without foreign body of lip, initial encounter; F17.210 Nicotine dependence, cigarettes, uncomplicated; Z78.1 Physical restraint status; S61.411A Laceration without foreign body of right hand, initial encounter; S51.011A Laceration without foreign body of right elbow, initial encounter; Y92.9 Unspecified place or not applicable; X78.0XXA Intentional self-harm by sharp glass, initial encounter
CPT/HCPCS: 12004; 31500; 31720; 36415; 36600; 51702; 70450; 70486; 71045; 72125; 73120; 80048; 80053; 81001; 82550; 82553; 82803; 82947; 84132; 85025; 85027; 85610; 87086; 90471; 90714; 93005; 93010; 94002; 94003; 96361; 96365-59; 96367; 96375; 96375-59; 96376; 99285-25; C9113; G0378; G0480; J0295; J0330; J0690; J1200; J1630; J1885; J2060; J2250; J2704; J3010; J3480; J7030; J7050; J7120